=== PATIENT | male | born 1960 | race Caucasian/White ===

== ENCOUNTER 2017-04-02 07:25 | Day surgery (SDC) | payer BC ==
[2017-04-02 07:55] LABS: HEMOGLOBIN 15.8 g/dL (14.1-18.0)
[2017-04-02 07:56] LABS: LYMPH # 1.2 K/mm3 (0.7-4.5); LYMPH % 18.7 % (10-50)
[2017-04-02 07:58] LABS: BUN 17 mg/dL (7-18)
[2017-04-02 07:59] LABS: GFR (ESTIMATED) 69 ML/MIN (>60)
--- NOTE | 2017-04-02 10:50 | RADIOLOGY REPORT PS360 ---
CARDIAC CATHETERIZATION DATE OF CATHETERIZATION:04/02/2017 9:31 AM PROCEDURES: 1. Left heart catheterization 2. Left ventriculogram 3. Selective coronary angiogram INDICATION FOR TEST: 1. Abnormal Myoview inferior lateral ischemia 2. Angina pectoris 3. Risk factors for coronary artery disease Informed consent was obtained prior to the procedure. COMPLICATIONS: None ESTIMATED BLOOD LOSS: Less than 10 ml. TECHNIQUE: One percent lidocaine used to anesthetize the right anterior aspect of the wrist. The right radial artery was accessed via the Seldinger technique. A 6 Tamazight sheath was placed in the right radial artery. 2.5 mg of verapamil, 800 mcg of nitroglycerin and 5000 U Heparin were given through the arterial sheath. The Karla catheter was also used to perform left heart catheterization and left ventriculography. At the end of the procedure the patient was transferred to the post-op holding area in stable condition for arterial sheath removal. ANGIOGRAPHIC RESULTS: 1. The left main artery is normal and shares an ostium with a very large dominant right coronary artery 2. The left anterior descending artery is normal 3. The circumflex artery is a small vessel and normal 4. The right coronary artery is a massively large dominant vessel and originates off the left main artery. This is a 5 to 6 mm diameter vessel and is otherwise free of atherosclerotic plaque 5. The PANIAGUA ventriculogram reveals normal 65% 6. The left ventricular end-diastolic pressure 10 mmHg IMPRESSION: 1. 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 Normal ejection fraction 3. Normal left ventricular end-diastolic pressure PLAN: 1. Patient requires a coronary CTA to determine if the dominant right coronary artery has a malignant course. If present, patient would require surgical correction 2. Risk factor modification 3. Daily baby aspirin
[2017-04-02 13:14] VITALS: BP 133/78
== END 2017-04-02 13:31 | disposition home or self-care (01) ==
LOC: CATHLAB 07:25
PROVIDERS: Internal Medicine
PROC: 4A023N7 Measurement of Cardiac Sampling and Pressure, Left Heart, Percutaneous Approach (ICD-10-PCS; principal; 2017-04-02)
PROC: B2111ZZ Fluoroscopy of Multiple Coronary Arteries using Low Osmolar Contrast (ICD-10-PCS; 2017-04-02)
PROC: B2151ZZ Fluoroscopy of Left Heart using Low Osmolar Contrast (ICD-10-PCS; 2017-04-02)
DX: R07.9 Chest pain, unspecified (principal); R94.39 Abnormal result of other cardiovascular function study; I20.9 Angina pectoris, unspecified

== ENCOUNTER → 2017-04-03 | Outpatient (CLI) | payer BC ==
[~2017-04-03] MED LIST: AMLODIPINE BESY1 C11 PO; ANTIVERT GENERI25 MG PO; LISINOPRIL40 MG PO; PRAVASTATIN 20M20 MG PO
--- NOTE | 2017-04-04 16:19 | RADIOLOGY REPORT PS360 ---
PROCEDURE: 2-D M-mode and color Doppler study INDICATIONS FOR THE TEST: Chest pain + COPD Heart Murmur Tobacco Smoking Palpitations Fatigue Syncope Edema Hypertension+Diabetes Mellitus Rheumatic Fever SOB+LUGO Obesity Hyperlipidemia+ Family History HD Additional History CATH 04/02/17, ANGELA, ABN STRESS PATIENT INFORMATION HEIGHT:69 WEIGHT:191 GENDER: Male B/P:112/82 2-D/M-MODE INTERPRETATION: 2-D MEASUREMENTS OBSERVED VALUES IN CMS Right Ventricular Dimension (RVDd) 2.4 Interventricular Septum (Thickness)(IVsd) 1.4 Left Ventricular Internal Dimensions(LVIDd) 5.2 Left Ventricular Posterior Wall (Thickness)(LVPWd) 0.9 Aortic Root 3.5 Aortic Cusp Separation 2.0 Left Atrial Dimensions (LAD) 3.2 2D 1. Left atrium is qualitatively mildly enlarged, left ventricle is normal size, there is mild qualitative concentric left ventricular hypertrophy present, visually estimated ejection fraction 55% with no obvious regional wall motion abnormality. 2. The right atrium and right ventricle are normal size and contractility. 3. The aortic valve is minimally thickened and fibrosed. 4. The mitral and tricuspid valve are grossly normal. 5. The pulmonic valve is noted well visualized. 6. No significant pericardial effusion noted. DOPPLER INTERROGATION: Doppler interrogation of the aortic, mitral and tricuspid valvular presence of trace aortic, mild mitral and tricuspid regurgitation, tricuspid regurgitant jet velocity insufficient for calculation of the right ventricular systolic pressure, grade 1 diastolic dysfunction seen without tissue Doppler evidence of raised left atrial pressure. CONCLUSION: 1. Mildly enlarged left atrium, normal left ventricular size, mild concentric left ventricular hypertrophy, visually estimated ejection fraction 55% with no obvious regional wall motion abnormality, grade 1 diastolic dysfunction seen without tissue Doppler evidence of raised left atrial pressure. 2. Trace aortic, mild mitral and tricuspid regurgitation. 3. No significant pericardial effusion noted.
== END ==
LOC: RT 14:08
DX: R55 Syncope and collapse (principal); R07.9 Chest pain, unspecified; R94.39 Abnormal result of other cardiovascular function study; R06.09 Other forms of dyspnea; I10 Essential (primary) hypertension; E78.5 Hyperlipidemia, unspecified; G47.33 Obstructive sleep apnea (adult) (pediatric)

== ENCOUNTER → 2017-04-04 | Outpatient (CLI) | payer BC ==
[2017-04-04 07:30] VITALS: BP 129/77
[2017-04-04 07:59] VITALS: BP 117/73
[2017-04-04 08:30] VITALS: BP 111/76
--- NOTE | 2017-04-09 06:41 | RADIOLOGY REPORT PS360 ---
CTA HEART W/CONT CORONARY AGF HISTORY: Coronary artery variant noted on heart catheter. Evaluate for malignant course of the coronary arteries ANOMALIES CIRCULATION, NEAR SYNCOPE, ANGELA,ABN STRESS,CP,DYS ORDERING PHYSICIAN: Edil Mustafa MD PATIENT AGE: 57 years TECHNIQUE: Coronary calcium score performed followed by CTA. Helical acquisition acquired following the bolus administration of 80 mL's of Isovue-370. Reformatted images performed degenerated. COMPARISON: None FINDINGS: There is a single coronary artery arising from the anterior cusp of the aortic valve giving rise to a large right coronary artery and a smaller left main coronary artery. The left main coronary artery courses between the root of the aorta and the pulmonary outflow tract and is smaller than expected bifurcating into a prominent diagonal branch and circumflex. There is a prominent marginal noted with the circumflex artery the fairly small. The LAD is a very small artery having an intramural course proximally originating from the left main coronary artery as it emerges from the 20 the aortic root and pulmonary outflow tract. The LAD becomes slightly larger as it courses along the interventricular groove. There is mild plaque present at the bifurcation of the left main coronary artery. The RCA is dominant and much larger than normal 2-3 times larger than the expected size given rise to a prominent PDA and posterior lateral branch to the left ventricle. No stenotic lesions evident of the RCA. There is a reformatted images there is a questionable area of soft plaque in the proximal PDA however, this is not identified on the raw data images and is probably related to misregistration artifact. Please correlate with recent cardiac catheterization. The aortic root is normal in size with 3 cusps. IMPRESSION: 1. 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 Please see above for detail. 2. Caliber of the main coronary artery is smaller than expected and the caliber of the LAD proximally is much smaller than expected. 3. Large right coronary artery giving rise to the PDA and prominent posterior lateral branch of the left ventricle 4. Mild coronary artery disease
== END ==
LOC: RAD 07:12
DX: Q28.9 Congenital malformation of circulatory system, unspecified (principal); R07.9 Chest pain, unspecified; R06.09 Other forms of dyspnea; R94.39 Abnormal result of other cardiovascular function study; R55 Syncope and collapse; K21.9 Gastro-esophageal reflux disease without esophagitis; I10 Essential (primary) hypertension; G47.33 Obstructive sleep apnea (adult) (pediatric)

== ENCOUNTER 2017-05-16 07:13 | Emergency (ER) | payer BC ==
[~2017-05-16] VITALS: Ht 175.3 cm; Wt 86.2 kg
[2017-05-16] MEDS ORDERED: CLOPIDOGREL75 MG PO (07:25)
[2017-05-16] MEDS ORDERED: DOCUSATE SODIU100 MG PO (07:26)
[2017-05-16] MEDS ORDERED: METOPROLOL SUCC25 M2 PO (07:27)
[2017-05-16 07:36] LABS: HEMOGLOBIN 14.8 g/dL (14.1-18.0); LYMPH # 1.4 K/mm3 (0.7-4.5); LYMPH % 22.6 % (10-50)
--- OUTSIDE RECORDS SUMMARY | 2017-05-16 07:45 | External Medical Summary Rpt | CCD ---
Author Author [employer] Organization [employer] Address Unknown Phone Unavailable Purpose Continuity of Care Document - through 2016
--- OUTSIDE RECORDS SUMMARY | 2017-05-16 07:45 | External Medical Summary Rpt | CCD ---
Demographics Preferred Language Yemeni Marital Status Unknown Christianity Affiliation Unknown Race Unknown Ethnic Group Unknown Author Author , CARLO Organization CARLO Address Unknown Phone [email or web address] Immunization Name Date Rout CVX Reac Dose Comm Prov Is Faci e tion ent ider Refu lity Give sed n Td 03-0 9 999 Hist H149 No H149 (talita 6-19 [facility] lt), 97 al Info adso rmat rbed ion - Sour ce Unsp ecif ied
--- OUTSIDE RECORDS SUMMARY | 2017-05-16 07:45 | External Medical Summary Rpt | CCD ---
Demographics Preferred Language Spanish Marital Status Unknown Restoration Affiliation Unknown Race Unknown Ethnic Group Unknown Author Author , CARLO Organization CARLO Address Unknown Phone [email or web address] Immunization Name Date Rout CVX Reac Dose Comm Prov Is Faci e tion ent ider Refu lity Give sed n Td 03-0 9 999 Hist H149 No H149 (talita 6-19 [facility] lt), 97 al Info adso rmat rbed ion - Sour ce Unsp ecif ied
--- OUTSIDE RECORDS SUMMARY | 2017-05-16 07:45 | External Medical Summary Rpt | CCD ---
Author Author , CARLO Organization CARLO Address Unknown Phone [email or web address] Purpose Continuity of Care Document - 03-23-2017 through 2016 Results Labs Lab Lab Date Result Refere Interp Status Commen Order Detail nces retati t Range on TSH SerPl DL<=0.005 mIU/L-aCnc (04-20-2017 06:09) TSH 1.70 0.4-4.2 complet SerPl 017 uIU/mL ed DL<=0.0 06:09 05 mIU/L-a Cnc Magnesium SerPl-mCnc (04-19-2017 02:35) Magnesi 2.3 1.9-2.4 complet um 017 mg/dL ed SerPl-m 02:35 Cnc Ca-I SerPl ISE-sCnc (04-19-2017 02:35) Ca-I 4.6 4.6-5.1 complet SerPl 017 mg/dL ed ISE-sCn 02:35 c Phosphate SerPl-mCnc (04-19-2017 02:35) Phospha 04-19- 2.9 2.5-4.5 complet te 017 mg/dL ed SerPl-m 02:35 Cnc Phosphate SerPl-mCnc (04-18-2017 01:17) Phospha 04-18- 2.3 2.5-4.5 complet te 017 mg/dL ed SerPl-m 01:17 Cnc Prealb SerPl-mCnc (04-18-2017 01:17) Prealb 04-18- 17.6 20-41 complet SerPl-m 017 mg/dL ed Cnc 01:17 Magnesium SerPl-mCnc (04-18-2017 01:17) Magnesi 2.1 1.9-2.4 complet um 017 mg/dL ed SerPl-m 01:17 Cnc Ca-I SerPl ISE-sCnc (04-18-2017 01:17) Ca-I 4.6 4.6-5.1 complet SerPl 017 mg/dL ed ISE-sCn 01:17 c Potassium SerPl-sCnc (04-17-2017 04:18) Potassi 4.4 3.7-4.8 complet um 017 mmol/L ed SerPl-s 04:18 Cnc Potassium SerPl-sCnc (04-17-2017 00:27) Potassi 4.0 3.7-4.8 complet um 017 mmol/L ed SerPl-s 00:27 Cnc MRSA DNA XXX Ql PCR (04-16-2017 20:31) MRSA [id number] NEGATIV complet PCR 017 05 E for ed RESULT 20:31 analyte MRSA not DNA by detecte PCR, d SCT MRSA NOMRSA coloniz NEGATIV ation E for unlikel MRSA y. DNA by PCR, MRSA coloniz ation unlikel y. L MOLECUL Nares complet AR SPEC 017 (NARES) ed 20:31 DESCRIP TION MRSA BY [id number] complet PCR 017 05 ed 20:31 analyte not detecte d SCT NOMRSA NEGATIV E for MRSA DNA by PCR, MRSA coloniz ation unlikel y. L MDRO Wnd (04-16-2017 20:31) Bacteri [id number] complet a XXX 017 06 No ed Anaerob 20:31 growth e+Aerob (qualif e Cult ier value) SCT NG1 NO GROWTH DAY 1. L CC XXX NOTAP complet VC-aCnc 017 NOT ed 20:31 APPLICA BLE L SPECIME SWAB complet N 017 TRANSPO ed CONTAIN 20:31 RT ER SWAB(S) INFO: L Hgb A1c MFr Bld (04-16-2017 20:31) Hgb A1c 5.1 % 4.7-6.0 complet MFr 017 ed Bld 20:31
--- OUTSIDE RECORDS SUMMARY | 2017-05-16 07:45 | External Medical Summary Rpt | CCD ---
Author Author , CARLO Organization CARLO Address Unknown Phone [email or web address] Purpose Continuity of Care Document - 03-23-2017 [...] DNA XXX Ql PCR (04-16-2017 20:31) MRSA [id number] NEGATIV complet PCR 017 05 E for ed RESULT 20:31 analyte MRSA not DNA by detecte PCR, d SCT MRSA NOMRSA coloniz NEGATIV ation E for unlikel MRSA y. DNA by PCR, MRSA coloniz ation unlikel y. L MOLECUL Nares complet AR SPEC 017 (NARES) ed 20:31 DESCRIP TION MRSA BY [id number] complet PCR 017 05 ed 20:31 analyte not detecte d SCT NOMRSA NEGATIV E for MRSA DNA by PCR, MRSA coloniz ation unlikel y. L MDRO Wnd (04-16-2017 20:31) Bacteri [id number] complet a XXX 017 06 No ed [...]
--- OUTSIDE RECORDS SUMMARY | 2017-05-16 07:46 | External Medical Summary Rpt ---
Author Author RAVENDAIJA Beverly, [employer] Organization [employer] Address Unknown Phone Unavailable Results CBC W Auto Differential panel in Blood Observa Value Referen Units Interpr Notes Date tion ce etation Range Basophils 0 - 0.2 K/MM3 Normal No May 16 informati 2016 7:25 [#/volume on in AM ] in source Blood by data Automated count Basophils 0.1 - 2.0 % Normal No May 16 / informati 2017 7:25 leukocyte on in AM s in source Blood by data Automated count Eosinophi 0.0 - 0.4 K/mm3 Normal No May 16 ls informati 2016 7:25 [#/volume on in AM ] in source Blood by data Automated count Eosinophi 0.1 - % Normal No May 16 ls/100 12.0 informati 2017 7:25 leukocyte on in AM s in source Blood by data Automated count Granulocy 1.3 - 8.0 K/mm3 Normal No May 16 bola informati 2017 7:25 [#/volume on in AM ] in source Blood by data Automated count Granulocy 37.0 - % Normal No May 16 bola/100 80.0 informati 2017 7:25 leukocyte on in AM s in source Blood by data Automated count Hematocri 42.0 - % Normal No May 16 t [Volume 52.0 informati 2016 7:25 on in AM Fraction] source of Blood data Hemoglobi 14.1 - g/dL Normal No May 16 n 18.0 informati 2016 7:25 [Mass/vol on in AM ume] in source Blood data Lymphocyt 0.7 - 4.5 K/mm3 Normal No May 16 es informati 2016 7:25 [#/volume on in AM ] in source Unspecifi data ed specimen by Automated count Lymphocyt 10 - 50 % Normal No May 16 es informati 2016 7:25 [#/volume on in AM ] in source Unspecifi data ed specimen by Automated count Erythrocy 27 - 31.2 pg Normal No May 16 te mean informati 2016 7:25 corpuscul on in AM ar source hemoglobi data n [Entitic mass] Erythrocy 31.8 - g/dl Normal No May 16 te mean 35.4 informati 2017 7:25 corpuscul on in AM ar source hemoglobi data n concentra tion [Mass/vol ume] by Automated count Erythrocy 82.2 - fl Normal No May 16 te mean 97.8 informati 2016 7:25 corpuscul on in AM ar volume source [Entitic data volume] by Automated count Monocytes 0.1 - 1.0 K/mm3 Normal No May 9 informati 2016 7:25 [#/volume on in AM ] in source Blood by data Automated count Monocytes 1.7 - 9.3 % High No May 16 /100 informati 2017 7:25 leukocyte on in AM s in source Blood by data Automated count Platelet 7.4 - fl Low No May 16 mean 10.4 informati 2016 7:25 volume on in AM [Entitic source volume] data in Blood by Automated count Platelets 142 - 424 K/mm3 Normal No May 9 informati 2016 7:25 [#/volume on in AM ] in source Blood data Erythrocy 4.6 - 6.2 M/mm3 Normal No May 9 bola informati 2017 7:25 [#/volume on in AM ] in source Amniotic data fluid Erythrocy 11.5 - % Normal No May 16 te 17.5 informati 2016 7:25 distribut on in AM ion width source [Entitic data volume] by Automated count Leukocyte 4.8 - K/MM3 Normal No May 9 s 10.8 informati 2016 7:25 [#/volume on in AM ] in source Blood data Basic metabolic panel in Blood Observa Value Referen Units Interpr Notes Date tion ce etation Range Urea 7 - 18 mg/dL Normal No Sep 26 nitrogen informati 2017 7:40 [Mass/vol on in AM ume] in source Serum or data Plasma Calcium 8.5 - mg/dL Normal No Sep 26 [Mass/vol 10.1 informati 2017 7:40 ume] in on in AM Serum or source Plasma data Chloride 98 - 107 mmoL/L Normal No Sep 26 [Moles/vo informati 2017 7:40 lume] in on in AM Serum or source Plasma data Carbon 21.0 - mmoL/L Normal No Sep 26 dioxide, 32.0 informati 2017 7:40 total on in AM [Moles/vo source lume] in data Serum or Plasma Creatinin 0.70 - mg/dL Normal No Sep 26 e 1.30 informati 2017 7:40 [Mass/vol on in AM ume] in source Serum or data Plasma Estimated >60 ML/MIN No REFERENCE Sep 26 informati RANGE: 2017 7:40 glomerula on in >60 AM r source ML/MIN/1. filtratio data 73 SQUARE n rate METERSIf (GF this patient is -A merican, then multiply theresult by 1.210. Glucose 74 - 106 mg/dL Normal No Sep 26 [Mass/vol informati 2017 7:40 ume] in on in AM Serum or source Plasma data Potassium 3.5 - 5.1 mmoL/L Normal No Sep 26 informati 2017 7:40 [Moles/vo on in AM lume] in source Serum or data Plasma Sodium 136 - 145 mmoL/L Normal No Sep 26 [Moles/vo informati 2017 7:40 lume] in on in AM Serum or source Plasma data CBC W Auto Differential panel in Blood Observa Value Referen Units Interpr Notes Date tion ce etation Range Granulocy 1.3 - 8.0 K/mm3 Normal No Sep 26 bola informati 2017 7:40 [#/volume on in AM ] in source Blood by data Automated count Granulocy 37.0 - % Normal No Sep 26 bola/100 80.0 informati 2017 7:40 leukocyte on in AM s in source Blood by data Automated count Hematocri 42.0 - % Normal No Sep 26 t [Volume 52.0 informati 2017 7:40 on in AM Fraction] source of Blood data Hemoglobi 14.1 - g/dL Normal No Sep 26 n 18.0 informati 2017 7:40 [Mass/vol on in AM ume] in source Blood data Lymphocyt 0.7 - 4.5 K/mm3 Normal No Sep 26 es informati 2017 7:40 [#/volume on in AM ] in source Unspecifi data ed specimen by Automated count Lymphocyt 10 - 50 % Normal No Sep 26 es informati 2017 7:40 [#/volume on in AM ] in source Unspecifi data ed specimen by Automated count Erythrocy 27 - 31.2 pg Normal No Sep 26 te mean informati 2017 7:40 corpuscul on in AM ar source hemoglobi data n [Entitic mass] Erythrocy 31.8 - g/dl Normal No Sep 26 te mean 35.4 informati 2017 7:40 corpuscul on in AM ar source hemoglobi data n concentra tion [Mass/vol ume] by Automated count Erythrocy 82.2 - fL Normal No Sep 26 te mean 97.8 informati 2017 7:40 corpuscul on in AM ar volume source [Entitic data volume] by Automated count Monocytes 0.1 - 1.0 K/mm3 Normal No Sep 26 informati 2017 7:40 [#/volume on in AM ] in source Blood by data Automated count Monocytes 1.7 - 9.3 % Normal No Sep 26 /100 informati 2017 7:40 leukocyte on in AM s in source Blood by data Automated count Platelets 142 - 424 K/mm3 Normal No Sep 26 informati 2017 7:40 [#/volume on in AM ] in source Blood data Erythrocy 4.6 - 6.2 M/mm3 Normal No Sep 26 bola informati 2017 7:40 [#/volume on in AM ] in source Amniotic data fluid Erythrocy 11.5 - % Normal No Sep 26 te 17.5 informati 2017 7:40 distribut on in AM ion width source [Entitic data volume] by Automated count Leukocyte 4.8 - K/mm3 Normal No Sep 26 s 10.8 informati 2017 7:40 [#/volume on in AM ] in source Blood data Basic metabolic panel in Blood Observa Value Referen Units Interpr Notes Date tion ce etation Range Urea 7 - 18 mg/dL High No Sep 16 nitrogen informati 2017 7:35 [Mass/vol on in AM ume] in source Serum or data Plasma Calcium 8.5 - mg/dL Normal No Sep 16 [Mass/vol 10.1 informati 2017 7:35 ume] in on in AM Serum or source Plasma data Chloride 98 - 107 mmoL/L Normal No Sep 16 [Moles/vo informati 2017 7:35 lume] in on in AM Serum or source Plasma data Carbon 21.0 - mmoL/L Normal No Sep 16 dioxide, 32.0 informati 2017 7:35 total on in AM [Moles/vo source lume] in data Serum or Plasma Creatinin 0.70 - mg/dL Normal No Sep 16 e 1.30 informati 2017 7:35 [Mass/vol on in AM ume] in source Serum or data Plasma Estimated >60 ML/MIN No REFERENCE Sep 16 informati RANGE: 2017 7:35 glomerula on in >60 AM r source ML/MIN/1. filtratio data 73 SQUARE n rate METERSIf (GF this patient is -A merican, then multiply theresult by 1.210. Glucose 74 - 106 mg/dL Normal No Sep 16 [Mass/vol informati 2017 7:35 ume] in on in AM Serum or source Plasma data Potassium 3.5 - 5.1 mmoL/L Normal No Sep 16 informati 2017 7:35 [Moles/vo on in AM lume] in source Serum or data Plasma Sodium 136 - 145 mmoL/L Normal No Sep 16 [Moles/vo informati 2017 7:35 lume] in on in AM Serum or source Plasma data Thyroxine (T4) free [Mass/volume] in Serum or Plasma Observa Value Referen Units Interpr Notes Date tion ce etation Range Thyroxine 0.76 - ng/dL Normal No Sep 16 (T4) 1.46 informati 2017 7:35 free on in AM [Mass/vol source ume] in data Serum or Plasma Lipid 1996 panel in Serum or Plasma Observa Value Referen Units Interpr Notes Date tion ce etation Range Cholester < 200 mg/dL No No Sep 16 ol informati informati 2017 7:35 [Moles/vo on in on in AM lume] in source source Unspecifi data data ed specimen Cholester 40 - 60 MG/DL Normal No Sep 16 ol in HDL informati 2017 7:35 on in AM [Mass/vol source ume] in data Serum or Plasma Cholester 0 - 130 mg/dL Normal No Sep 16 ol in LDL informati 2017 7:35 on in AM [Mass/vol source ume] in data Serum or Plasma by calculati on Triglycer 30 - 200 mg/dL Normal No Sep 16 andrew informati 2017 7:35 [Moles/vo on in AM lume] in source Serum or data Plasma Cholester 0 - 40 No Normal No Sep 16 ol in informati informati 2017 7:35 VLDL on in on in AM [Mass/vol source source ume] in data data Serum or Plasma Hepatic function 2000 panel in Serum or Plasma Observa Value Referen Units Interpr Notes Date tion ce etation Range Albumin 3.4 - 5.0 gm/dL Normal No Sep 16 [Mass/vol informati 2017 7:35 ume] in on in AM Serum or source Plasma data Alkaline 46 - 116 U/L Normal No Sep 16 phosphata informati 2016 7:35 se on in AM [Enzymati source c data activity/ volume] in Serum or Plasma Bilirubin 0.0 - 0.2 mg/dL Normal No Sep 16 .direct informati 2017 7:35 [Mass/vol on in AM ume] in source Serum or data Plasma Bilirubin 0 - 0.9 mg/dL Normal No Sep 16 .indirect informati 2017 7:35 on in AM [Mass/vol source ume] in data Serum or Plasma Bilirubin 0.2 - 1.0 mg/dL Normal No Sep 16 .total informati 2017 7:35 [Mass/vol on in AM ume] in source Serum or data Plasma Aspartate 15 - 37 U/L Low No Sep 16 informati 2016 7:35 aminotran on in AM sferase source [Enzymati data c activity/ volume] in Serum or Plasma Alanine 12 - 78 U/L Normal No Sep 16 aminotran informati 2016 7:35 sferase on in AM [Enzymati source c data activity/ volume] in Serum or Plasma Protein 6.4 - 8.2 gm/dL Normal No Sep 16 [Mass/vol informati 2016 7:35 ume] in on in AM Serum or source Plasma data Thyrotropin [Units/volume] in Serum or Plasma Observa Value Referen Units Interpr Notes Date tion ce etation Range Thyrotrop 0.358 - uIU/ml Normal No Sep 16 in 3.740 informati 2016 7:35 [Units/vo on in AM lume] in source Serum or data Plasma CBC W Auto Differential panel in Blood Observa Value Referen Units Interpr Notes Date tion ce etation Range Basophils 0 - 0.2 K/MM3 Normal No Sep 16 informati 2016 7:35 [#/volume on in AM ] in source Blood by data Automated count Basophils 0.1 - 2.0 % Normal No Sep 16 /100 informati 2016 7:35 leukocyte on in AM s in source Blood by data Automated count Eosinophi 0.0 - 0.4 K/mm3 Normal No Sep 16 ls informati 2016 7:35 [#/volume on in AM ] in source Blood by data Automated count Eosinophi 0.1 - % Normal No Sep 16 ls/100 12.0 informati 2017 7:35 leukocyte on in AM s in source Blood by data Automated count Granulocy 1.3 - 8.0 K/mm3 Normal No Sep 16 bola informati 2017 7:35 [#/volume on in AM ] in source Blood by data Automated count Granulocy 37.0 - % Normal No Sep 16 bola/100 80.0 informati 2016 7:35 leukocyte on in AM s in source Blood by data Automated count Hematocri 42.0 - % Normal No Sep 16 t [Volume 52.0 informati 2016 7:35 on in AM Fraction] source of Blood data Hemoglobi 14.1 - g/dL Normal No Sep 16 n 18.0 informati 2017 7:35 [Mass/vol on in AM ume] in source Blood data Lymphocyt 0.7 - 4.5 K/mm3 Normal No Sep 16 es informati 2017 7:35 [#/volume on in AM ] in source Unspecifi data ed specimen by Automated count Lymphocyt 10 - 50 % Normal No Sep 16 es informati 2017 7:35 [#/volume on in AM ] in source Unspecifi data ed specimen by Automated count Erythrocy 27 - 31.2 pg Normal No Sep 16 te mean informati 2017 7:35 corpuscul on in AM ar source hemoglobi data n [Entitic mass] Erythrocy 31.8 - g/dl Normal No Sep 16 te mean 35.4 informati 2016 7:35 corpuscul on in AM ar source hemoglobi data n concentra tion [Mass/vol ume] by Automated count Erythrocy 82.2 - fl Normal No Sep 16 te mean 97.8 informati 2016 7:35 corpuscul on in AM ar volume source [Entitic data volume] by Automated count Monocytes 0.1 - 1.0 K/mm3 Normal No Sep 16 informati 2017 7:35 [#/volume on in AM ] in source Blood by data Automated count Monocytes 1.7 - 9.3 % Normal No Sep 16 /100 informati 2017 7:35 leukocyte on in AM s in source Blood by data Automated count Platelet 7.4 - fl Low No Sep 16 mean 10.4 informati 2016 7:35 volume on in AM [Entitic source volume] data in Blood by Automated count Platelets 142 - 424 K/mm3 Normal No Sep 16 informati 2017 7:35 [#/volume on in AM ] in source Blood data Erythrocy 4.6 - 6.2 M/mm3 Normal No Sep 16 bola informati 2017 7:35 [#/volume on in AM ] in source Amniotic data fluid Erythrocy 11.5 - % Normal No Sep 16 te 17.5 informati 2017 7:35 distribut on in AM ion width source [Entitic data volume] by Automated count Leukocyte 4.8 - K/MM3 Normal No Sep 16 s 10.8 informati 2017 7:35 [#/volume on in AM ] in source Blood data
[2017-05-16 07:55] LABS: BUN 16 mg/dL (7-18)
[2017-05-16 07:57] LABS: GFR (ESTIMATED) 88 ML/MIN (>60)
--- NOTE | 2017-05-16 08:51 | Emergency Room Report ---
History of Present Illness Time Seen by [id number] Presenting Problem in Triage Pt arrived:Walked Presenting Problem:RT SIDE OF FACE AND LIP SWOLLEN. PT TOOK BENADRYL BUT IT DID NOT HELP. PT RECENTLY STARTED ON SYDNI INHIBITOR. 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 N Clinical Suspician of Infection? N Mental Status: 1 - Regular (Normal Baseline) Sepsis Risk:Low Sepsis Risk Have you (or family members/close friends) recently traveled outside the [place]? N If Yes, where/when: Have you had exposure to infectious disease within the past month? TB? Other? Specify: Source patient, RN notes reviewed, family, old records Exam Limitations no limitations Comment pt with lip swelling but no tongue swelling and no sob - had cabg 04/23/17 and was placed back on lotrel - Cardiac Chest Pain Chest pain indicative of cardiac No Timing/Duration this evening Severity moderate ALLERGIES Coded Allergies: No Known Allergies (03/15/17) Home Medications Reported Medications Pravastatin Sodium (Pravastatin 20MG) 20 MG PO QHS AMLODIPINE BESYLATE/BENAZEPRIL (Amlodipine-Benazepril 5-40 MG) 1 CAP PO DAILY #30 CLOPIDOGREL BISULFATE (Clopidogrel 75MG) 75 MG PO DAILY Docusate Sodium 100 MG PO QHS Metoprolol Succinate 25 MG PO BID #30 History Medical History General Angina: No [place]: No Hypertension? Yes Hyperlipidemia? Yes COPD? No Asthma? No Thyroid Problems? No Hypothyroidism? No CVA? No Seizures? No Diabetes? No GB Disease: No MRSA? No TB? No Cancer? No Immunization Hx DT/Tetanus Unknown Flu Refused Pneumonia Refuses Surgical Hx Previous Surgery?Y OPEN HEART SURGERY 04/23 Family History Family Hx Diabetes No CAD Yes Hypertension Yes Hyperlipidemia Yes Cancer No TB No Social History Smoking Hx Smoker: Never Smoker Tobacco: No Alcohol Alcohol: No Drugs none Review of Systems All Other Systems Reviewed and Negative Constitutional denies fever Eyes denies drainage ENT see HPI. denies: ear discharge, epistaxis, mouth swelling, throat pain, throat swelling. Respiratory denies shortness of breath Cardiovascular denies chest pain Gastrointestinal denies abdominal pain, denies nausea Genitourinary denies: dysuria, frequency, hesitancy, hematuria. Musculoskeletal denies back pain, denies joint pain, denies joint swelling, denies neck pain Skin denies rash Psychiatric/Neurological denies headache, denies seizure Physical Exam Vital Signs Vital Signs Date Time Temp Pulse Resp B/P Pulse O2 O2 Flow FiO2 Ox Delivery Rate 05/16 821 98.1 80 20 148/98 96 05/16 717 98.1 87 18 157/102 97 - WBC >12,000 or <4,000 or 10% bands? 2 or more SIRS Criteria Met? B/P:148/98 MAP:120 Creatinine >2.0? UA output<0.5ml/kg/hr for 2 hrs? Platelet count >100,000? Lactate >2.0mmol/1? INR >1.2 or PTT > than 60 sec? Evidence of Organ Dysfunction? Provider documented clinical suspician of infection? N Sepsis Criteria Count: 0 Sepsis Risk: Low Sepsis Risk General Appearance no apparent distress Eye Exam - bilateral eye PERRL, bilateral eye EOMI Ear, Nose, Throat swollen rt sided lip- tongue/airway ok Neck supple Respiratory Status No: respiratory distress. Lung Sounds bilateral: lungs clear. 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 No Results/Orders Laboratory Tests 05/16/17 0725: Sodium 143, Potassium 4.2, Chloride 108 H, Carbon Dioxide 28, BUN 16, Creatinine 0.9, Estimated Creat Clear 113, Estimated GFR (MDRD) 88, Glucose 91, Calcium 8.9, Total Bilirubin 0.6, AST 23, ALT 93 H, Alkaline Phosphatase 119 H , Creatine Kinase 74, CK-MB (CK-2) Rel Index 0.7, CK and CKMB Interp < 0.5, Troponin I < 0.02, Total Protein 6.7, Albumin 3.9, Globulin 2.8, Albumin/ Globulin Ratio 1.4, WBC 6.3, RBC 4.93, Hgb 14.8, Hct 44.9, MCV 90.9, RDW 14.0, Plt Count 230, MPV 7.1 L, Gran % 62.2, Gran # 3.9, Lymphocytes % 22.6, Monocytes % 10.6 H, Eosinophils % 4.3, Basophils % 0.5, Lymphocytes # 1.4, Monocytes # 0.7, Eosinophils # 0.3, Basophils # 0.0, PUBS MCHC 33.0, MCH 30.0 Current Medication Orders Sig/Maira Start time Last Medication Dose Route Stop Time Status Admin Sodium Chloride 10 ML PRN PRN 05/16 730 AC IV 05/17 729 Orders Procedure Date/time Status CHEST(2 VIEWS-NOT PORTABLE) 05/16 739 Active ELECTROCARDIOGRAM REQUEST 05/16 730 Active IV SALINE LOCK 05/16 730 Active CBC WITH AUTO DIFF 05/16 730 Complete CARDIAC ENZYMES 05/16 730 Complete CHEM 12 PROFILE 05/16 730 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 ST/Twave chgs Departure Departure Time of Disposition 844 Disposition DC Home or Self Care(routine) Clinical Impression Primary Impression: Angioedema Qualifiers: Encounter type: initial encounter Qualified Code: T78.3XXA - Angioneurotic edema, initial encounter Secondary Impressions: S/P CABG x 1 Condition STABLE Referrals Rai Oliva MD (Family) discussed with dr oliva Patient Instructions DI for Angioedema Additional Instructions stop lotrel and see pcp for follow up Discharge Counseling Counseled pt/family regarding diagnosis, test results, medications/RX, follow up needs Prescriptions Current Visit Scripts Amlodipine Besylate (Norvasc) 5 MG PO DAILY #30 TAB ED Critical Care Critical Care No at 0900
--- NOTE | 2017-05-16 08:51 | Emergency Room Report ---
History of Present Illness Time Seen by [id number] Presenting Problem in Triage Pt arrived:Walked Presenting Problem:RT SIDE OF FACE AND LIP SWOLLEN. PT TOOK BENADRYL BUT IT DID NOT HELP. PT RECENTLY STARTED ON SYDNI INHIBITOR. 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 N Clinical Suspician of Infection? N Mental Status: 1 - Regular (Normal Baseline) Sepsis Risk:Low Sepsis Risk Have you (or family members/close friends) recently traveled outside the [place]? N If Yes, where/when: Have you had exposure to infectious disease within the past month? TB? Other? Specify: Source patient, RN notes reviewed, family, old records Exam Limitations no limitations Comment pt with lip swelling but no tongue swelling and no sob - had cabg 04/23/17 and was placed back on lotrel - Cardiac Chest Pain Chest pain indicative of cardiac No Timing/Duration this evening Severity moderate ALLERGIES Coded Allergies: No Known Allergies (03/15/17) Home Medications Reported Medications Pravastatin Sodium (Pravastatin 20MG) 20 MG PO QHS AMLODIPINE BESYLATE/BENAZEPRIL (Amlodipine-Benazepril 5-40 MG) 1 CAP PO DAILY #30 CLOPIDOGREL BISULFATE (Clopidogrel 75MG) 75 MG PO DAILY Docusate Sodium 100 MG PO QHS Metoprolol Succinate 25 MG PO BID #30 History Medical History General Angina: No [place]: No Hypertension? Yes Hyperlipidemia? Yes COPD? No Asthma? No Thyroid Problems? No Hypothyroidism? No CVA? No Seizures? No Diabetes? No GB Disease: No MRSA? No TB? No Cancer? No Immunization Hx DT/Tetanus Unknown Flu Refused Pneumonia Refuses Surgical Hx Previous Surgery?Y OPEN HEART SURGERY 04/23 Family History Family Hx Diabetes No CAD Yes Hypertension Yes Hyperlipidemia Yes Cancer No TB No Social History Smoking Hx Smoker: Never Smoker Tobacco: No Alcohol Alcohol: No Drugs none Review of Systems All Other Systems Reviewed and Negative Constitutional denies fever Eyes denies drainage ENT see HPI. denies: ear discharge, epistaxis, mouth swelling, throat pain, throat swelling. Respiratory denies shortness of breath Cardiovascular denies chest pain Gastrointestinal denies abdominal pain, denies nausea Genitourinary denies: dysuria, frequency, hesitancy, hematuria. Musculoskeletal denies back pain, denies joint pain, denies joint swelling, denies neck pain Skin denies rash Psychiatric/Neurological denies headache, denies seizure Physical Exam Vital Signs Vital Signs Date Time Temp Pulse Resp B/P Pulse O2 O2 Flow FiO2 Ox Delivery Rate 05/16 821 98.1 80 20 148/98 96 05/16 717 98.1 87 18 157/102 97 - WBC >12,000 or <4,000 or 10% bands? 2 or more SIRS Criteria Met? B/P:148/98 MAP:120 Creatinine >2.0? UA output<0.5ml/kg/hr for 2 hrs? Platelet count >100,000? Lactate >2.0mmol/1? INR >1.2 or PTT > than 60 sec? Evidence of Organ Dysfunction? Provider documented clinical suspician of infection? N Sepsis Criteria Count: 0 Sepsis Risk: Low Sepsis Risk General Appearance no apparent distress Eye Exam - bilateral eye PERRL, bilateral eye EOMI Ear, Nose, Throat swollen rt sided lip- tongue/airway ok Neck supple Respiratory Status No: respiratory distress. Lung Sounds bilateral: lungs clear. Cardiovascular regular rate/rhythm, systolic murmur Peripheral Pulses Pulses normal Yes Extremities normal inspection Strength 4 Upper Ext (L), 4 Upper Ext (R), 4 Lower Ext (L), 4 Lower Ext (R) Neurologic alert, cloth bleaching range back tender II-XII nml as tested, no motor/sensory deficits Reflexes Reflexes normal No Mental status normal mood/affect Skin intact Medical Decision Making LABS/Meds/Orders Pt receiving controlled substance in ED? No Results/Orders Laboratory Tests 05/16/17 0725: Sodium 143, Potassium 4.2, Chloride 108 H, Carbon Dioxide 28, BUN 16, Creatinine 0.9, Estimated Creat Clear 113, Estimated GFR (MDRD) 88, Glucose 91, Calcium 8.9, Total Bilirubin 0.6, AST 23, ALT 93 H, Alkaline Phosphatase 119 H , Creatine Kinase 74, CK-MB (CK-2) Rel Index 0.7, CK and CKMB Interp < 0.5, Troponin I < 0.02, Total Protein 6.7, Albumin 3.9, Globulin 2.8, Albumin/ Globulin Ratio 1.4, WBC 6.3, RBC 4.93, Hgb 14.8, Hct 44.9, MCV 90.9, RDW 14.0, Plt Count 230, MPV 7.1 L, Gran % 62.2, Gran # 3.9, Lymphocytes % 22.6, Monocytes % 10.6 H, Eosinophils % 4.3, Basophils % 0.5, Lymphocytes # 1.4, Monocytes # 0.7, Eosinophils # 0.3, Basophils # 0.0, PUBS MCHC 33.0, MCH 30.0 Current Medication Orders Sig/Maira Start time Last Medication Dose Route Stop Time Status Admin Sodium Chloride 10 ML PRN PRN 05/16 730 AC IV 05/17 729 Orders Procedure Date/time Status CHEST(2 VIEWS-NOT PORTABLE) 05/16 739 Active ELECTROCARDIOGRAM REQUEST 05/16 730 Active IV SALINE LOCK 05/16 730 Active CBC WITH AUTO DIFF 05/16 730 Complete CARDIAC ENZYMES 05/16 730 Complete CHEM 12 PROFILE 05/16 730 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 ST/Twave chgs Departure Departure Time of Disposition 844 Disposition DC Home or Self Care(routine) Clinical Impression Primary Impression: Angioedema Qualifiers: Encounter type: initial encounter Qualified Code: T78.3XXA - Angioneurotic edema, initial encounter Secondary Impressions: S/P CABG x 1 Condition STABLE Referrals Rai Oliva MD (Family) discussed with dr oliva Patient Instructions DI for Angioedema Additional Instructions stop lotrel and see pcp for follow up Discharge Counseling Counseled pt/family regarding diagnosis, test results, medications/RX, follow up needs Prescriptions Current Visit Scripts Amlodipine Besylate (Norvasc) 5 MG PO DAILY #30 TAB ED Critical Care Critical Care No at 0900
[2017-05-16] MEDS ORDERED: NORVASC 5MG. TAB5 MG PO (09:00)
[2017-05-16 09:12] VITALS: BP 152/107
--- NOTE | 2017-05-16 10:50 | RADIOLOGY REPORT PS360 ---
CHEST(2 VIEWS-NOT PORTABLE) HISTORY: Coronary artery disease, recent open heart surgery SWELLING OF THE LIP AND FACE ORDERING PHYSICIAN: Mandy Roper MD PATIENT AGE: 57 years COMPARISON: None available FINDINGS: Status post median sternotomy. Normal heart size. No evidence of pneumothorax or significant effusion. There are however atelectatic changes in both lower lobes. Upper lobes are clear. No acute bony anomalies. IMPRESSION: Moderate bilateral lower lobe atelectasis status post recent median sternotomy
== END 2017-05-16 09:13 | disposition home or self-care (01) ==
LOC: ER 07:13
PROVIDERS: Emergency Medicine
DX: T78.3XXA Angioneurotic edema, initial encounter (principal); I10 Essential (primary) hypertension

== ENCOUNTER → 2017-05-28 | Outpatient (CLI) | payer BC ==
[~2017-05-28] MED LIST changes: +CLOPIDOGREL75 MG PO; +DOCUSATE SODIU100 MG PO; +METOPROLOL SUCC25 M2 PO; +NORVASC 5MG. TAB5 MG PO
--- NOTE | 2017-05-28 21:22 | RADIOLOGY REPORT PS360 ---
PROCEDURE: 2-D M-mode and color Doppler study INDICATIONS FOR THE TEST: Chest pain COPD Heart Murmur Tobacco Smoking Palpitations Fatigue Syncope Edema HypertensionXDiabetes Mellitus Rheumatic Fever SOB LUGO Obesity HyperlipidemiaX Family History HD Additional History CAD,CABG PATIENT INFORMATION HEIGHT: 69 WEIGHT:191 GENDER: Male B/P:110/80 2-D/M-MODE INTERPRETATION: 2-D MEASUREMENTS OBSERVED VALUES IN CMS Right Ventricular Dimension (RVDd) 2.6 Interventricular Septum (Thickness)(IVsd) 1.5 Left Ventricular Internal Dimensions(LVIDd) 4.4 Left Ventricular Posterior Wall (Thickness)(LVPWd) 1.3 Aortic Root 3.5 Aortic Cusp Separation 2.0 Left Atrial Dimensions (LAD) 3.6 2D 1. Left atrium is qualitatively mildly enlarged, left ventricle is normal size, there is mild concentric left ventricular hypertrophy, visually estimated ejection fraction of 50-55%, there is abnormal septal motion. 2. The right atrium and right ventricle are normal size and contractility. 3. The aortic valve is minimally thickened and fibrosed, there is no aortic stenosis 4. The mitral and tricuspid valves are grossly normal. 5. The pulmonic valve is poorly visualized. DOPPLER INTERROGATION: Doppler interrogation of the aortic, mitral and tricuspid valvular presence of trace aortic, mild mitral and tricuspid regurgitation, tricuspid regurgitant jet velocity insufficient for calculation of the right ventricular systolic pressure. Diastolic parameters are inconclusive. CONCLUSION: 1. Mildly enlarged left atrium, normal left ventricular size, mild concentric left ventricular hypertrophy, visually estimated ejection fraction 50-55% with no obvious regional wall motion abnormality, there is abnormal septal motion. 2. Trace aortic, mild mitral and tricuspid regurgitation. 3. No significant pericardial effusion noted.
== END ==
LOC: RT 07:44
DX: Q24.5 Malformation of coronary vessels (principal); I10 Essential (primary) hypertension; E78.5 Hyperlipidemia, unspecified; G47.33 Obstructive sleep apnea (adult) (pediatric)

== ENCOUNTER → 2017-06-07 | Outpatient (CLI) | payer BC ==
[2017-06-07 09:58] LABS: BILIRUBIN, INDIRECT 0.36 mg/dL (0-0.9); BUN 28 mg/dL (7-18)
[2017-06-07 10:03] LABS: GFR (ESTIMATED) 49 ML/MIN (>60)
== END ==
LOC: LAB 09:27
PROVIDERS: Internal Medicine Cardiovascular Disease
DX: I10 Essential (primary) hypertension (principal); E78.5 Hyperlipidemia, unspecified; G47.33 Obstructive sleep apnea (adult) (pediatric); Z95.1 Presence of aortocoronary bypass graft

== ENCOUNTER → 2017-06-14 | Outpatient (CLI) | payer BC ==
[2017-06-14 10:25] LABS: BUN 24 mg/dL (7-18)
[2017-06-14 10:31] LABS: GFR (ESTIMATED) 57 ML/MIN (>60)
== END ==
LOC: LAB 08:47
PROVIDERS: Internal Medicine Cardiovascular Disease
DX: I10 Essential (primary) hypertension (principal); E78.5 Hyperlipidemia, unspecified; M79.1 Myalgia; Q24.5 Malformation of coronary vessels